=== PATIENT | female | born 1950 | race Caucasian/White ===

== ENCOUNTER 2017-01-02 22:39 | Emergency (ER) | payer MEDICARE, OTHER ==
--- NOTE | 2017-01-02 23:03 | EDM.PDOC ---
ED HPI GENERAL MEDICAL PROBLEM - General Chief Complaint: General Stated Complaint: Palpitations Time Seen by Provider: 01/02/17 22:57 Source of Information: Reports: Patient - History of Present Illness INITIAL COMMENTS - FREE TEXT/NARRATIVE: Feels like her heart rate is irregular. Onset: Today Duration: Hour(s): Location: Reports: Chest - Related Data Allergies Allergy/AdvReac Type Severity Reaction Status Date / Time ampicillin Allergy Cannot Verified 01/02/17 22:43 Remember Sulfa (Sulfonamide Allergy Cannot Verified 01/02/17 22:43 Antibiotics) Remember Home Meds: Home Meds Glimepiride [Amaryl] 2 mg PO DAILY 10/18/14 [History] metFORMIN [Glucophage] 500 mg PO BID 10/18/14 [History] Magnesium 250 mg PO ASDIRECTED 04/10/16 [History] Propafenone HCl 225 mg PO BID 04/10/16 [History] Vit D3/Folic Acid/B2/B6/B12 [Folgard Tablet] 1 tab PO ASDIRECTED 04/10/16 [ History] Levothyroxine [Synthroid] 88 mcg PO ACBREAKFAST 04/11/16 [History] Lisinopril 5 mg PO BEDTIME 04/11/16 [History] Lisinopril [Prinivil] 5 mg PO DAILY tablet 04/11/16 [Rx] Metoprolol Tartrate 12.5 mg PO BID 04/11/16 [History] Apixaban [Eliquis] 5 mg PO BID 01/02/17 [History] Past Medical History HEENT History: Reports: Other (See Below) Other HEENT History: 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 Cardiovascular History: Reports: Afib, Hypertension Respiratory History: Reports: None Gastrointestinal History: Reports: GERD, Hemorrhoids Genitourinary History: Reports: None ILLUSIONIST History: Reports: Musculoskeletal History: Reports: None Neurological History: Reports: None Psychiatric History: Reports: None Endocrine/Metabolic History: Reports: Diabetes, Type II Hematologic History: Reports: None Immunologic History: Reports: None Oncologic (Cancer) History: Reports: None Dermatologic History: Reports: None - Infectious Disease History Infectious Disease History: Reports: Chicken Pox, Measles, Mumps - Past Surgical History Head Surgeries/Procedures: Reports: None Other GI Surgeries/Procedures: scope scheduled for next month Social & Family History - Family History Family Medical History: Noncontributory Cardiac: Reports: Hypertension OBGYN: Reports: Endocrine/Metabolic: Reports: Diabetes, type II Oncologic: Reports: Breast - Tobacco Use Smoking Status *Q: Never Smoker Second Hand Smoke Exposure: No - Caffeine Use Caffeine Use: Reports: None - Alcohol Use Days Per Week of Alcohol Use: 0 Number of Drinks Per Day: 1 Total Drinks Per Week: 0 - Recreational Drug Use Recreational Drug Use: No ED ROS GENERAL - Review of Systems Review Of Systems: See Below Cardiovascular: Reports: Blood Pressure Problem, Palpitations ED EXAM, GENERAL - Physical Exam Exam: See Below Free Text/Narrative:: From the time the pateint was placed on the monitor until now, she has been in a sinus rhythm or tach. no a- fid noted, or ectopy of any type. Has a history of a-fib in the past. Exam Limited By: No Limitations General Appearance: Alert, WD/WN Nose: Normal Inspection Throat/Mouth: Normal Inspection Head: Atraumatic Neck: Normal Inspection Respiratory/Chest: No Respiratory Distress Cardiovascular: Normal Peripheral Pulses GI/Abdominal: Normal Bowel Sounds Rectal (Female) Exam: Normal Exam Back Exam: Normal Inspection Extremities: Normal Inspection Neurological: Alert, Oriented Psychiatric: Normal Affect Skin Exam: Warm, Dry Departure - Departure Time of Disposition: 23:01 Disposition: Home, Self-Care 01 Condition: Good Clinical Impression: Palpitations - Discharge Information Instructions: Palpitations, [id number] Forms: ED Department Discharge Additional Instructions: Follow up with your regular doctor as needed.
== END 2017-01-02 23:33 | disposition home or self-care (01) ==
LOC: CC.ED 22:39
CPT/HCPCS: 99283; 99284